=== PATIENT | female | born 1970 | race Caucasian/White ===

== ENCOUNTER 2017-09-23 10:16 | Outpatient (CLI) | payer OTHER ==
--- NOTE | 2017-09-23 14:15 | XRAY Report ---
TWO VIEW THORACIC SPINE: 09/23/2017 CLINICAL INDICATION: Back pain. FINDINGS: Frontal and lateral views of the thoracic spine demonstrate mild degenerative disk disease. There is dextroscoliosis of the thoracolumbar junction, measuring 30 degrees between the pedicles of T11 and L2. No compression fracture is seen. IMPRESSION: MILD DEGENERATIVE DISK DISEASE. DEXTROSCOLIOSIS OF THE THORACOLUMBAR JUNCTION. TD: 09/23/2017 14:14
== END 2017-09-23 10:17 | disposition home or self-care (01) ==
LOC: DI.S 10:16
PROVIDERS: ATTEND Nurse Practitioner Family
DX: M51.34 Other intervertebral disc degeneration, thoracic region (principal); M41.85 Other forms of scoliosis, thoracolumbar region; M51.36 Other intervertebral disc degeneration, lumbar region; M41.86 Other forms of scoliosis, lumbar region
CPT/HCPCS: 72070; 72100

== ENCOUNTER 2017-09-23 10:18 | Outpatient (CLI) | payer OTHER ==
--- NOTE | 2017-09-23 14:14 | XRAY Report ---
THREE VIEW LUMBAR SPINE: 09/23/2017 CLINICAL INDICATION: Back pain. FINDINGS: AP, lateral, coned down views of the lumbar spine demonstrate dextroscoliosis of the thoracolumbar juncture, with compensatory levoscoliosis of the lower lumbar spine. There is no evidence of compression fracture or subluxation. Moderate degenerative disk disease is present. The bowel gas pattern appears normal. An IUD is noted in the pelvis. IMPRESSION: S-SHAPED SCOLIOSIS OF THE LUMBAR SPINE, WITH MODERATE DEGENERATIVE DISK DISEASE. TD: 09/23/2017 14:12
== END 2017-09-23 10:19 | disposition home or self-care (01) ==
LOC: DI.S 10:18
PROVIDERS: ATTEND Nurse Practitioner Family
DX: M51.36 Other intervertebral disc degeneration, lumbar region (principal); M41.86 Other forms of scoliosis, lumbar region
CPT/HCPCS: 72100